=== PATIENT | female | born 1975 | race Caucasian/White ===

== ENCOUNTER 2023-02-18 14:15 | Inpatient (IN) | payer OTHER, SELFPAY ==
[2023-02-18 15:30] VITALS: BMI 43.8
[2023-02-18] MEDS ORDERED: Acetaminophen 650 MG Suppository PR PRN (16:32)
[2023-02-18 16:58] LABS: #Basophils 0.1 thou/uL (0.0-0.2); #Eosinphils 0.4 thou/uL (0.0-0.7); #Monocytes 0.6 thou/uL (0.11-0.59); #Neutrophils 4.9 thou/uL (1.40-6.50); %Basophils 0.7 % (0.0-1.0); %Eosinophils 4.3 % (0.0-10.0); %Monocytes 7.1 % (0.0-10.0); %Neutrophils 56.6 % (42.0-75.0); Hematocrit 41.6 % (36.0-47.0); Hemoglobin 13.9 g/dL (12.0-16.0); Mean Corpuscular HGB CONC 33.4 g/dL (32.0-36.0); Mean Corpuscular Hemoglobin 29.4 pg (27.0-31.0); Mean Corpuscular Volume 87.9 fl (78.0-98.0); Mean Platelet Volume 10.1 fL (7.4-10.4); Platelet Count 231 10x3/uL (130-400); RBC Distribution Width 13.2 % (11.5-14.5); Red Blood Cell (RBC) Count 4.73 mill/uL (4.20-5.40); White Blood Cell (WBC) Count 8.7 10x3/uL (4.8-10.8)
[2023-02-18] MEDS ORDERED: FLU VACC QS2023-24(6MOS UP)/PF 60 MCG/0.5 ML SYRINGE IM ONE (17:15)
[2023-02-18 17:19] LABS: Anion Gap 15 mmol/L (10-20); BUN (Urea Nitrogen) 11 mg/dL (7.0-18.7); Calc. Creatinine Clearance 176 mL/min (70-130); Calcium 8.5 mg/dL (7.8-10.44); Carbon Dioxide 24 mmol/L (22-29); Chloride 105 mmol/L (98-107); Estimated GFR 101; Glucose 85 mg/dL (70-105); Potassium 3.9 mmol/L (3.5-5.1); Sodium 140 mmol/L (136-145)
[2023-02-18 17:29] LABS: Troponin I 1.617 ng/mL (< 0.028)
[2023-02-18] MEDS: Morphine 2 MG/ML VIAL SLOW IVP PRN (18:15)
[2023-02-18 20:21] LABS: Troponin I 1.807 ng/mL (< 0.028)
[2023-02-18] MEDS: Lorazepam 1 MG TAB PO PRN (20:26)
[2023-02-18] MEDS: Acetaminophen 325 MG TAB PO PRN (20:26)
[2023-02-18] MEDS: Colchicine 0.6 MG TAB PO SCH (20:26)
[2023-02-18] MEDS: Nitroglycerin 0.4 MG TAB (25 Tab Bottle) SL PRN ×2 (20:29→20:33)
[2023-02-19] MEDS: Acetaminophen 325 MG TAB PO PRN ×3 (03:58→22:05)
[2023-02-19] MEDS: Morphine 2 MG/ML VIAL SLOW IVP PRN ×5 (03:59→23:01)
[2023-02-19 04:40] LABS: #Basophils 0.1 thou/uL (0.0-0.2); #Eosinphils 0.4 thou/uL (0.0-0.7); #Monocytes 0.6 thou/uL (0.11-0.59); #Neutrophils 4.1 thou/uL (1.40-6.50); %Basophils 0.9 % (0.0-1.0); %Eosinophils 4.8 % (0.0-10.0); %Lymphocytes 34.3 % (21.0-51.0); %Monocytes 7.9 % (0.0-10.0); %Neutrophils 51.7 % (42.0-75.0); Hematocrit 44.3 % (36.0-47.0); Hemoglobin 14.1 g/dL (12.0-16.0); Mean Corpuscular HGB CONC 31.8 g/dL (32.0-36.0); Mean Corpuscular Hemoglobin 29.2 pg (27.0-31.0); Mean Platelet Volume 11.9 fL (7.4-10.4); Platelet Count 192 10x3/uL (130-400); RBC Distribution Width 13.4 % (11.5-14.5); Red Blood Cell (RBC) Count 4.83 mill/uL (4.20-5.40)
[2023-02-19 04:43] LABS: Mean Corpuscular Volume 91.7 fl (78.0-98.0)
[2023-02-19 05:05] LABS: Anion Gap 14 mmol/L (10-20); BUN (Urea Nitrogen) 10 mg/dL (7.0-18.7); Calc. Creatinine Clearance 159 mL/min (70-130); Calcium 8.6 mg/dL (7.8-10.44); Carbon Dioxide 23 mmol/L (22-29); Cardiac Risk 5.1 (Less than 4.5); Chloride 104 mmol/L (98-107); Cholesterol 192 mg/dl (< 200 Desired); Estimated GFR 89; Glucose 101 mg/dL (70-105); HDL Cholesterol 38 mg/dL (>60 Neg Risk); LDL Cholesterol, Calculated 112 mg/dL; Sodium 137 mmol/L (136-145); Triglycerides 211 mg/dL (Less than 150)
[2023-02-19] MEDS: Nitroglycerin 0.4 MG TAB (25 Tab Bottle) SL PRN ×3 (07:40→21:03)
[2023-02-19] MEDS: Aspirin Chewable 81 MG TAB PO SCH (08:46)
[2023-02-19] MEDS: Colchicine 0.6 MG TAB PO SCH ×2 (09:00→19:50)
[2023-02-19] MEDS ORDERED: Communication Order-Pharmacy FS SCH (10:30)
[2023-02-19 12:34] LABS: Critical Call Chem Troponin I RESULT DECREASING; Troponin I 1.322 ng/mL (< 0.028)
[2023-02-19] MEDS: Indomethacin 25 mg Capsule PO SCH ×2 (18:45→23:04)
[2023-02-19 19:09] LABS: Troponin I 1.644 ng/mL (< 0.028)
[2023-02-19] MEDS: Lorazepam 1 MG TAB PO PRN (19:50)
[2023-02-19] MEDS ORDERED: Indomethacin 25 mg Capsule PO SCH (21:00)
[2023-02-20] MEDS ORDERED: Sodium Chloride 0.9% 1,000 ML IV SCH (06:00)
[2023-02-20] MEDS ORDERED: fentaNYL 50 mcg/mL 1 mL Vial ONE ×3 (06:05→14:52)
[2023-02-20] MEDS ORDERED: Midazolam HCl 2 mg/2 ml Vial ONE ×5 (06:05→14:51)
[2023-02-20] MEDS: Aspirin Chewable 81 MG TAB PO SCH (06:05)
[2023-02-20] MEDS: Indomethacin 25 mg Capsule PO SCH ×2 (06:05→18:03)
[2023-02-20] MEDS ORDERED: Nitroglycerin 50 MG/250 ML BOT 250 ML ONE ×2 (06:06→15:24)
[2023-02-20] MEDS ORDERED: Heparin 10,000 UNITS/ 10 ML VIAL ONE (06:06)
[2023-02-20] MEDS ORDERED: Lidocaine 1% (PF) 30 ML VIAL ONE (06:06)
[2023-02-20] MEDS: Colchicine 0.6 MG TAB PO SCH (06:06)
[2023-02-20] MEDS ORDERED: Verapamil 5 MG/2 ML VIAL ONE (06:12)
[2023-02-20] MEDS ORDERED: hydrALAZINE 20 MG/ML VIAL ONE (07:41)
[2023-02-20] MEDS: Nitroglycerin 0.4 MG TAB (25 Tab Bottle) SL PRN (08:35)
[2023-02-20] MEDS ORDERED: Communication Order-Pharmacy FS SCH (10:09)
[2023-02-20] MEDS ORDERED: CEFAZOLIN 2 GM in Sodium Chloride 0.9% 100 ML IVPB SCH (10:15)
[2023-02-20] MEDS ORDERED: Heparin 10,000 UNITS/1 ML VIAL 30,000 UNITS in Sodium Chloride 0.9% 1,000 ML FS SCH (10:45)
[2023-02-20] MEDS ORDERED: CEFAZOLIN 2 GM VIAL ONE (11:24)
[2023-02-20] MEDS ORDERED: Sodium Chloride 0.9% 100 ML ONE (11:24)
[2023-02-20] MEDS ORDERED: Vecuronium 10 MG VIAL ONE ×2 (11:48→11:54)
[2023-02-20] MEDS ORDERED: Fentanyl 250 MCG/5 ML VIAL ONE ×2 (11:48→13:19)
[2023-02-20] MEDS ORDERED: Protamine Sulfate 250 MG/25 ML VIAL ONE (11:54)
[2023-02-20] MEDS ORDERED: Thrombin 5000 UNITS/5 ML VIAL ONE (11:54)
[2023-02-20] MEDS ORDERED: Papaverine 60 MG/2 ML VIAL ONE (11:54)
[2023-02-20] MEDS ORDERED: Labetalol HCl 100 MG/20 ML VIAL ONE (11:54)
[2023-02-20] MEDS ORDERED: Vancomycin 1 GM VIAL ONE (11:54)
[2023-02-20] MEDS ORDERED: Rocuronium Bromide 10 MG/ML (10ML VIAL) ONE (11:54)
[2023-02-20] MEDS ORDERED: Heparin 30,000 units/30 ml VIAL ONE (11:54)
[2023-02-20] MEDS ORDERED: Calcium Chloride 1 GM/10 ML Abboject SYRINGE ONE (11:54)
[2023-02-20] MEDS ORDERED: Albumin 25% 25 GM/100 ML BOT ONE (11:54)
[2023-02-20] MEDS ORDERED: PROPOFOL 200 MG/20 ML VIAL ONE (11:54)
[2023-02-20] MEDS ORDERED: Aminocaproic Acid 5 GM/20 ML VIAL ONE (11:54)
[2023-02-20] MEDS ORDERED: Albumin 5% 250 ML ONE (12:48)
[2023-02-20] MEDS ORDERED: Bupivacaine PF 0.5% 30 ML VIAL ONE (13:24)
[2023-02-20] MEDS ORDERED: EPINEPHrine 1 MG/ML VIAL ONE (13:24)
[2023-02-20] MEDS ORDERED: PROPOFOL 20 ML ONE (13:37)
[2023-02-20 15:28] LABS: Actual Bicarbonate (HCO3a) 20.2 mEq/L (22-28); Base Excess (BEa) -7.2 mEq/L (-2.0 to +3.0); CO2 Tension 48.5 mmHg (35.0-45.0); Calcium, Ionized (arterial) 1.16 mmol/L (1.12-1.30); Carboxyhemoglobin (COHb) 0.7 gm% (0.0-3.0); Hematocrit-ABG 38 % (36.0-47.0); Hemoglobin (Hb) 12.9 g/dL (12.0-16.0); Potassium - ABG Lab 3.97 mmol/L (3.70-5.30); pH, Arterial 7.238 (7.35-7.45)
[2023-02-20 15:29] LABS: ALV-art Gradient 178.875 mmHg (0-20); Puncture Site Arterial Line
[2023-02-20] MEDS ORDERED: Guaifenesin DM 100-10/5 ML UDCUP PO PRN (15:40)
[2023-02-20] MEDS ORDERED: Ipratropium/Albuterol 3 ML NEB NEB PRN (15:40)
[2023-02-20] MEDS ORDERED: DOPamine 400 MG/D5W 250 ML 250 ML IVPB PRN (15:40)
[2023-02-20] MEDS ORDERED: Nitroglycerin 0.4 MG TAB (25 Tab Bottle) SL PRN (15:40)
[2023-02-20] MEDS ORDERED: Promethazine HCl 25 MG/ML VIAL IM PRN (15:40)
[2023-02-20] MEDS ORDERED: Magnesium 2 GM/50 ML(in water) 2 GM in Premix 1 BAG IVPB SCH (15:40)
[2023-02-20] MEDS ORDERED: Acetaminophen 325 MG TAB PO PRN (15:40)
[2023-02-20] MEDS ORDERED: HYDROcodone/Acetaminophen 5/325 mg Tablet PO PRN (15:40)
[2023-02-20] MEDS ORDERED: fentaNYL 50 mcg/mL 1 mL Vial SLOW IVP PRN (15:40)
[2023-02-20] MEDS ORDERED: Acetaminophen/Codeine 30-300mg Tablet PO PRN ×2 (15:40)
[2023-02-20] MEDS ORDERED: NOREPINEPHRINE 8 MG/250 ML-D5W 250 ML IVPB PRN (15:40)
[2023-02-20] MEDS ORDERED: Sodium Chloride 0.9% 200 ML IV PRN (15:40)
[2023-02-20] MEDS ORDERED: hydrALAZINE 20 MG/ML VIAL SLOW IVP PRN (15:40)
[2023-02-20] MEDS ORDERED: Post-Op Insulin Drip Protocol IVPB ONE (15:40)
[2023-02-20] MEDS ORDERED: Bisacodyl 10 MG SUPP PR PRN (15:40)
[2023-02-20] MEDS ORDERED: Morphine 2 MG/ML VIAL SLOW IVP PRN (15:40)
[2023-02-20] MEDS ORDERED: HUMULIN R 100 UNITS in Sodium Chloride 0.9% 100 ML IVPB SCH (15:45)
[2023-02-20] MEDS ORDERED: Glucagon 1 MG/ML KIT SC PRN (15:45)
[2023-02-20] MEDS ORDERED: Dextrose 50% Abboject 50 ML SYRINGE SLOW IVP PRN (15:45)
[2023-02-20] MEDS ORDERED: Dextrose 5% in Water 1,000 ML IV PRN (15:45)
[2023-02-20] MEDS ORDERED: niCARdipine 25 MG in Sodium Chloride 0.9% 250 ML 250 ML IVPB SCH (16:15)
[2023-02-20] MEDS: Sodium Chloride 0.9% 1,000 ML IV SCH (16:25)
[2023-02-20] MEDS: Insulin Regular 300 UNITS/3 ML VIAL SC PRN ×2 (16:25→21:32)
[2023-02-20 16:44] LABS: #Basophils 0.1 thou/uL (0.0-0.2); #Eosinphils 0.4 thou/uL (0.0-0.7); #Neutrophils 11.4 thou/uL (1.40-6.50); %Basophils 0.5 % (0.0-1.0); %Eosinophils 2.2 % (0.0-10.0); %Lymphocytes 20.9 % (21.0-51.0); %Monocytes 5.6 % (0.0-10.0); %Neutrophils 67.3 % (42.0-75.0); Hematocrit 36.9 % (36.0-47.0); Hemoglobin 12.2 g/dL (12.0-16.0); Mean Corpuscular HGB CONC 33.1 g/dL (32.0-36.0); Mean Corpuscular Hemoglobin 29.7 pg (27.0-31.0); Mean Corpuscular Volume 89.8 fl (78.0-98.0); Mean Platelet Volume 10.7 fL (7.4-10.4); Platelet Count 236 10x3/uL (130-400); RBC Distribution Width 13.1 % (11.5-14.5); Red Blood Cell (RBC) Count 4.11 mill/uL (4.20-5.40)
[2023-02-20 16:56] LABS: Anion Gap 11 mmol/L (10-20); BUN (Urea Nitrogen) 8 mg/dL (7.0-18.7); Calc. Creatinine Clearance 176 mL/min (70-130); Calcium 8.2 mg/dL (7.8-10.44); Carbon Dioxide 22 mmol/L (22-29); Chloride 109 mmol/L (98-107); Estimated GFR 101; Glucose 141 mg/dL (70-105); Potassium 3.8 mmol/L (3.5-5.1); Sodium 138 mmol/L (136-145)
[2023-02-20 17:03] LABS: INR-International Normal Ratio 1.2; PTT 28.1 sec (22.9-36.1); Prothrombin Time 15.3 sec (12.0-14.7)
[2023-02-20 17:15] LABS: Base Excess (BEa) -2.9 mEq/L (-2.0 to +3.0); CO2 Tension 29.3 mmHg (35.0-45.0); Calcium, Ionized (arterial) 1.09 mmol/L (1.12-1.30); Carboxyhemoglobin (COHb) 0.9 gm% (0.0-3.0); Hematocrit-ABG 38 % (36.0-47.0); Hemoglobin (Hb) 12.9 g/dL (12.0-16.0); Potassium - ABG Lab 3.89 mmol/L (3.70-5.30); pH, Arterial 7.451 (7.35-7.45)
[2023-02-20 17:25] LABS: Puncture Site Arterial Line
[2023-02-20] MEDS: Potassium Chloride 20 MEQ/100 ML PREMIX BAG IVPB PRN ×2 (17:30→22:52)
[2023-02-20] MEDS: fentaNYL 50 mcg/mL 1 mL Vial SLOW IVP PRN ×4 (17:44→23:43)
[2023-02-20] MEDS: Ketorolac Tromethamine 30 MG/ML VIAL IVP SCH ×2 (17:47→23:12)
[2023-02-20] MEDS: CEFAZOLIN 2 GM in Sodium Chloride 0.9% 100 ML IVPB SCH (20:47)
[2023-02-20] MEDS: Ondansetron PF 4 MG/2 ML Vial IVP PRN (20:57)
[2023-02-20] MEDS: Famotidine/PF 20 mg/2ml Vial SLOW IVP SCH (21:32)
[2023-02-20 22:12] LABS: Hematocrit 37.4 % (36.0-47.0); Hemoglobin 12.6 g/dL (12.0-16.0)
[2023-02-20 22:26] LABS: Potassium 3.7 mmol/L (3.5-5.1)
[2023-02-20] MEDS: Aspirin 325 MG TAB PO SCH (22:53)
[2023-02-20] MEDS: Atorvastatin Calcium 40 MG TAB PO SCH (22:53)
[2023-02-21] MEDS: HYDROcodone/Acetaminophen 5/325 mg Tablet PO PRN ×5 (00:52→20:45)
[2023-02-21] MEDS: fentaNYL 50 mcg/mL 1 mL Vial SLOW IVP PRN ×4 (01:42→08:33)
[2023-02-21] MEDS: Mag-Al 1200 mg/1200 mg/30 ML UDCUP PO PRN (02:42)
[2023-02-21] MEDS: Sodium Chloride 0.9% 1,000 ML IV SCH ×2 (03:52→16:37)
[2023-02-21] MEDS: CEFAZOLIN 2 GM in Sodium Chloride 0.9% 100 ML IVPB SCH ×2 (04:48→11:24)
[2023-02-21 04:51] LABS: #Basophils 0.1 thou/uL (0.0-0.2); #Monocytes 1.5 thou/uL (0.11-0.59); #Neutrophils 17.2 thou/uL (1.40-6.50); %Basophils 0.3 % (0.0-1.0); %Eosinophils 0.1 % (0.0-10.0); %Lymphocytes 9.1 % (21.0-51.0); %Monocytes 7.2 % (0.0-10.0); %Neutrophils 82.8 % (42.0-75.0); Hemoglobin 12.7 g/dL (12.0-16.0); Mean Corpuscular HGB CONC 33.4 g/dL (32.0-36.0); Mean Corpuscular Hemoglobin 29.7 pg (27.0-31.0); Mean Platelet Volume 10.6 fL (7.4-10.4); Platelet Count 301 10x3/uL (130-400); RBC Distribution Width 13.3 % (11.5-14.5); Red Blood Cell (RBC) Count 4.27 mill/uL (4.20-5.40); White Blood Cell (WBC) Count 20.8 10x3/uL (4.8-10.8)
[2023-02-21] MEDS: Insulin Regular 300 UNITS/3 ML VIAL SC PRN (04:56)
[2023-02-21 05:37] LABS: Anion Gap 13 mmol/L (10-20); BUN (Urea Nitrogen) 6 mg/dL (7.0-18.7); Calc. Creatinine Clearance 178 mL/min (70-130); Calcium 8.2 mg/dL (7.8-10.44); Carbon Dioxide 21 mmol/L (22-29); Chloride 103 mmol/L (98-107); Estimated GFR 102; Glucose 135 mg/dL (70-105); Sodium 133 mmol/L (136-145)
[2023-02-21] MEDS: Ketorolac Tromethamine 30 MG/ML VIAL IVP SCH ×3 (06:06→17:58)
[2023-02-21] MEDS: Ondansetron PF 4 MG/2 ML Vial IVP PRN (06:12)
[2023-02-21] MEDS: Potassium Chloride 20 MEQ/100 ML PREMIX BAG IVPB PRN (07:20)
[2023-02-21] MEDS: Famotidine/PF 20 mg/2ml Vial SLOW IVP SCH (08:38)
[2023-02-21] MEDS: Magnesium 2 GM/50 ML(in water) 2 GM in Premix 1 BAG IVPB SCH (08:39)
[2023-02-21] MEDS ORDERED: FLUoxetine HCl 10 MG CAP PO SCH (11:15)
[2023-02-21] MEDS: busPIRone HCl 10 MG TAB PO SCH ×2 (16:07→20:55)
[2023-02-21] MEDS: Aspirin 325 MG TAB PO SCH (20:45)
[2023-02-21] MEDS: Famotidine 20 MG TAB PO SCH (20:45)
[2023-02-21] MEDS: Atorvastatin Calcium 40 MG TAB PO SCH (20:46)
[2023-02-21] MEDS: traZODone HCl 150 MG TAB PO PRN (20:58)
[2023-02-21] MEDS: traZODone HCl 50 MG TAB PO PRN (20:58)
[2023-02-22] MEDS: Ketorolac Tromethamine 30 MG/ML VIAL IVP SCH ×4 (00:24→17:22)
[2023-02-22] MEDS: HYDROcodone/Acetaminophen 5/325 mg Tablet PO PRN ×2 (04:25→17:21)
[2023-02-22 04:54] LABS: #Eosinphils 0.3 thou/uL (0.0-0.7); #Monocytes 1.5 thou/uL (0.11-0.59); #Neutrophils 10.4 thou/uL (1.40-6.50); %Basophils 0.3 % (0.0-1.0); %Eosinophils 2.3 % (0.0-10.0); %Lymphocytes 13.1 % (21.0-51.0); %Monocytes 10.8 % (0.0-10.0); Hematocrit 36.3 % (36.0-47.0); Hemoglobin 11.6 g/dL (12.0-16.0); Mean Corpuscular Hemoglobin 29.1 pg (27.0-31.0); Mean Platelet Volume 10.6 fL (7.4-10.4); Platelet Count 206 10x3/uL (130-400); RBC Distribution Width 13.6 % (11.5-14.5); Red Blood Cell (RBC) Count 3.99 mill/uL (4.20-5.40); White Blood Cell (WBC) Count 14.2 10x3/uL (4.8-10.8)
[2023-02-22 05:27] LABS: Anion Gap 8 mmol/L (10-20); BUN (Urea Nitrogen) 13 mg/dL (7.0-18.7); Calc. Creatinine Clearance 158 mL/min (70-130); Calcium 8.4 mg/dL (7.8-10.44); Carbon Dioxide 27 mmol/L (22-29); Chloride 104 mmol/L (98-107); Estimated GFR 89; Glucose 138 mg/dL (70-105); Sodium 135 mmol/L (136-145)
[2023-02-22] MEDS ORDERED: ALPRAZolam 0.25 MG TAB PO PRN (09:51)
[2023-02-22] MEDS: FLUoxetine HCl 10 MG CAP PO SCH (10:46)
[2023-02-22] MEDS: Magnesium 2 GM/50 ML(in water) 2 GM in Premix 1 BAG IVPB SCH (10:46)
[2023-02-22] MEDS: busPIRone HCl 10 MG TAB PO SCH ×3 (10:47→21:58)
[2023-02-22] MEDS: Metoprolol Tartrate 25 MG TAB PO SCH ×2 (10:47→22:00)
[2023-02-22] MEDS: Famotidine 20 MG TAB PO SCH ×2 (10:47→21:59)
[2023-02-22] MEDS: Insulin Regular 300 UNITS/3 ML VIAL SC PRN (10:49)
[2023-02-22] MEDS: Mag-Al 1200 mg/1200 mg/30 ML UDCUP PO PRN (12:01)
[2023-02-22] MEDS: Ondansetron PF 4 MG/2 ML Vial IVP PRN (17:21)
[2023-02-22] MEDS: traZODone HCl 150 MG TAB PO PRN (21:58)
[2023-02-22] MEDS: traZODone HCl 50 MG TAB PO PRN (21:58)
[2023-02-22] MEDS: Aspirin 325 MG TAB PO SCH (21:59)
[2023-02-22] MEDS: Atorvastatin Calcium 40 MG TAB PO SCH (21:59)
[2023-02-23] MEDS: HYDROcodone/Acetaminophen 5/325 mg Tablet PO PRN ×3 (00:07→18:10)
[2023-02-23] MEDS: Ketorolac Tromethamine 30 MG/ML VIAL IVP SCH ×2 (00:09→05:47)
[2023-02-23 05:27] LABS: #Basophils 0.1 thou/uL (0.0-0.2); #Eosinphils 0.7 thou/uL (0.0-0.7); #Monocytes 1.3 thou/uL (0.11-0.59); #Neutrophils 8.8 thou/uL (1.40-6.50); %Basophils 0.5 % (0.0-1.0); %Eosinophils 5.5 % (0.0-10.0); %Lymphocytes 16.9 % (21.0-51.0); %Monocytes 10.1 % (0.0-10.0); %Neutrophils 66.4 % (42.0-75.0); Hematocrit 32.9 % (36.0-47.0); Hemoglobin 10.6 g/dL (12.0-16.0); Mean Corpuscular HGB CONC 32.2 g/dL (32.0-36.0); Mean Corpuscular Hemoglobin 29.6 pg (27.0-31.0); Mean Corpuscular Volume 91.9 fl (78.0-98.0); Mean Platelet Volume 10.9 fL (7.4-10.4); Platelet Count 202 10x3/uL (130-400); RBC Distribution Width 13.7 % (11.5-14.5); Red Blood Cell (RBC) Count 3.58 mill/uL (4.20-5.40); White Blood Cell (WBC) Count 13.2 10x3/uL (4.8-10.8)
[2023-02-23 05:56] LABS: Anion Gap 13 mmol/L (10-20); BUN (Urea Nitrogen) 20 mg/dL (7.0-18.7); Calc. Creatinine Clearance 147 mL/min (70-130); Calcium 8.3 mg/dL (7.8-10.44); Carbon Dioxide 25 mmol/L (22-29); Chloride 102 mmol/L (98-107); Estimated GFR 84; Glucose 129 mg/dL (70-105); Potassium 4.2 mmol/L (3.5-5.1); Sodium 136 mmol/L (136-145)
[2023-02-23] MEDS ORDERED: Furosemide 20 MG/2 ML VIAL SLOW IVP SCH (09:30)
[2023-02-23] MEDS: busPIRone HCl 10 MG TAB PO SCH ×3 (09:44→22:13)
[2023-02-23] MEDS: Metoprolol Tartrate 25 MG TAB PO SCH ×2 (09:44→22:12)
[2023-02-23] MEDS: Famotidine 20 MG TAB PO SCH ×2 (09:44→22:11)
[2023-02-23] MEDS: FLUoxetine HCl 10 MG CAP PO SCH (09:47)
[2023-02-23] MEDS: Bisacodyl 5 MG TAB PO PRN (18:06)
[2023-02-23] MEDS: traZODone HCl 50 MG TAB PO PRN (22:12)
[2023-02-23] MEDS: traZODone HCl 150 MG TAB PO PRN (22:12)
[2023-02-23] MEDS: Aspirin 325 MG TAB PO SCH (22:13)
[2023-02-23] MEDS: Atorvastatin Calcium 40 MG TAB PO SCH (22:13)
[2023-02-24] MEDS: Bisacodyl 5 MG TAB PO PRN (05:30)
[2023-02-24] MEDS: FLUoxetine HCl 10 MG CAP PO SCH (09:13)
[2023-02-24] MEDS: Famotidine 20 MG TAB PO SCH (09:13)
[2023-02-24] MEDS: Metoprolol Tartrate 25 MG TAB PO SCH (09:14)
[2023-02-24] MEDS: HYDROcodone/Acetaminophen 5/325 mg Tablet PO PRN (09:14)
[2023-02-24] MEDS: busPIRone HCl 10 MG TAB PO SCH (09:14)
[2023-02-24] MEDS: Ondansetron PF 4 MG/2 ML Vial IVP PRN (09:15)
[2023-02-24] MEDS: Mag-Al 1200 mg/1200 mg/30 ML UDCUP PO PRN (09:16)
[2023-02-24 09:22] VITALS: TEMP 98.1
[2023-02-24 13:34] VITALS: BP 121/67
== END 2023-02-24 13:30 | disposition home or self-care (01) | DRG 234 ==
LOC: 2SW 14:34 → CCU 02-20 09:02 → 2SW 02-20 09:15 → CCU 02-20 10:41 → 2NO 02-21 20:21
PROVIDERS: ADMIT Internal Medicine; ATTEND Internal Medicine Critical Care Medicine
PROC: 4A023N7 Measurement of Cardiac Sampling and Pressure, Left Heart, Percutaneous Approach (ICD-10-PCS; principal; 2023-02-20)
PROC: B2111ZZ Fluoroscopy of Multiple Coronary Arteries using Low Osmolar Contrast (ICD-10-PCS; 2023-02-20)
PROC: B2151ZZ Fluoroscopy of Left Heart using Low Osmolar Contrast (ICD-10-PCS; 2023-02-20)
PROC: 02100Z9 Bypass Coronary Artery, One Artery from Left Internal Mammary, Open Approach (ICD-10-PCS; 2023-02-20)
PROC: 02L70CK Occlusion of Left Atrial Appendage with Extraluminal Device, Open Approach (ICD-10-PCS; 2023-02-20)
PROC: 4A033R1 Measurement of Arterial Saturation, Peripheral, Percutaneous Approach (ICD-10-PCS; 2023-02-20)
PROC: 30233J1 Transfusion of Nonautologous Serum Albumin into Peripheral Vein, Percutaneous Approach (ICD-10-PCS; 2023-02-20)
PROC: 3E033XZ Introduction of Vasopressor into Peripheral Vein, Percutaneous Approach (ICD-10-PCS; 2023-02-20)
DX: I21.4 Non-ST elevation (NSTEMI) myocardial infarction (principal); D62 Acute posthemorrhagic anemia; J90 Pleural effusion, not elsewhere classified; I10 Essential (primary) hypertension; F41.9 Anxiety disorder, unspecified; I25.10 Atherosclerotic heart disease of native coronary artery without angina pectoris; E78.00 Pure hypercholesterolemia, unspecified; F41.8 Other specified anxiety disorders
CPT/HCPCS: 36415; 36416; 71045; 80048; 80061; 82805; 84484; 85025; 85610; 85730; 86850; 86900; 86901; 93005; 93010; 93306; 93458; 93798; 94002; 99152; 99153; A4311; C1751; C1769; C1894; J0171; J0360; J1644; J1815; J1885; J1940; J2001; J2250; J2272; J2405; J2440; J2704; J2720; J3010; J3370; J3475; J3480; J3490; J7050; P9045; P9047; S0017; S0020; S0028

== ENCOUNTER 2023-03-26 12:47 | Outpatient (CLI) | payer OTHER | END 2023-03-26 12:48 | disposition home or self-care (01) | LOC: RAD 12:47 | PROVIDERS: ATTEND Student in an Organized Health Care Education/Training Program | DX: I25.110 Atherosclerotic heart disease of native coronary artery with unstable angina pectoris (principal); J90 Pleural effusion, not elsewhere classified | CPT/HCPCS: 71046 ==